=== PATIENT | male | born 1940 ===

== ENCOUNTER → 2022-01-26 16:05 | Outpatient (REF) | payer MEDICARE, SELFPAY | LOC: ANHLAB 16:05 | PROVIDERS: PCP Internal Medicine; Visit Provider Nurse Practitioner | DX: C44.629 Squamous cell carcinoma of skin of left upper limb, including shoulder (principal) | CPT/HCPCS: 88305 ==

== ENCOUNTER → 2022-05-04 11:51 | Outpatient (REF) | payer MEDICARE, SELFPAY | LOC: ANHLAB 11:51 | PROVIDERS: PCP Internal Medicine; Visit Provider Nurse Practitioner | DX: C44.311 Basal cell carcinoma of skin of nose (principal) | CPT/HCPCS: 88305 ==

== ENCOUNTER → 2022-06-28 10:33 | Outpatient (REF) | payer MEDICARE, SELFPAY | LOC: ANHLAB 10:33 | PROVIDERS: PCP Internal Medicine; Visit Provider Nurse Practitioner | DX: C44.311 Basal cell carcinoma of skin of nose (principal) | CPT/HCPCS: 88305; 88331 ==